=== PATIENT | male | born 2000 | race Two or more races ===

== ENCOUNTER 2024-10-05 14:36 | Emergency (ER) | payer OTHER, SELFPAY ==
[2024-10-05 14:54] VITALS: BMI 26.3
--- NOTE | 2024-10-05 14:56 | PD.EDWOUND ---
ED Wound/Laceration-RME/HPI General Chief Complaint: Extremity Injury, Lower Stated Complaint: CHAINSAW CUT LEFT FOOT Time Seen by Provider: 10/05/24 14:49 Arrival date/time: 10/05/24 14:36 RME / HPI RME / HPI narrative: DR. WILSON MAIN ED EVALUATION: 24 year old male with no past medical history presents to the Emergency Department with complaint of left foot laceration after cutting himself with a chainsaw prior to arrival. Patient was cutting with a chainsaw, it broke and cut his left foot. Patient applying pressure to control bleeding. Patient was wearing sandals with socks and it cut through the sock. Related Data Allergies Allergy/AdvReac Type Severity Reaction Status Date / Time No Known Allergies Allergy Verified 10/05/24 14:43 Review of Systems Review of Systems Systems Reviewed: All systems reviewed, normal except as documented Narrative Review of Systems: GEN: No fever, no chills, no weight loss EYES: No discharge, no visual changes, no pain HEENT: No ear pain, no congestion, no sore throat PULM: No shortness of breath, no cough, no congestion CV: No chest pain, no dyspnea on exertion, no palpitations GI: No nausea, no vomiting, no diarrhea, no pain, no constipation : No frequency, no urgency and no dysuria MUSC/SKEL: No joint pain, no back pain SKIN: No rash; + left foot laceration (see HPI) PSYCH: No hallucinations, no depression HEME/LYMPH: No easy bleeding or bruising tendencies NEURO: No weakness, no headache Past Medical History Past Medical History CARDIAC: Negative Congestive Heart Failure RESPIRATORY: Negative Chronic Obstructive Pulmonary Disease (COPD) GENITOURINARY: Negative Renal Disease ENDOCRINE: Negative Diabetes Mellitus Type 1 or Diabetes Mellitus Type 2 Social History SMOKING STATUS: Never smoker SUBSTANCE USE: does not use ALCOHOL: Never ED Exam Narrative Physical exam: GENERAL APPEARANCE: AxOx4, generally well-appearing. HEENT: NC, AT. MMM. EOMI, clear conjunctiva, oropharynx clear. NECK: Supple without lymphadenopathy. No stiffness or restricted ROM. HEART: Normal rate and regular rhythm, normal S1/S1, no m/r/g LUNGS: CTAB, moving air well. No crackles or wheezes are heard. ABDOMEN: Soft, nontender, nondistended with good bowel sounds heard. BACK: No midline C/T/L spine pain or deformity, No CVAT, no obvious deformity. EXTREMITIES: There is a 4 cm irregular laceration to the dorsal aspect of the left foot over the first metatarsal; no visible tendon or bone. Good extension and flexion. Normal refill cap. Without cyanosis, clubbing or edema. MUSCULOSKELETAL: FROM of all major joints, no chest tenderness NEUROLOGICAL: Grossly nonfocal. Alert and oriented, moving all 4 extremities. CN not formally tested but appear grossly intact. Observed to ambulate with normal gait. Skin: There is a 4 cm irregular laceration to the dorsal aspect of the left foot over the first metatarsal (see above under extremities). Warm and dry without any rash. Course Quality Measures none Orders Category Date Time Status Lidocaine 1% Pf 5 ml [Xylocaine 1% Pf 5 ml] Med 10/05/24 14:57 Discontinued 5 ml EPID X1 ONE Tetanus, Diphtheria Toxoids/Pf [Tenivac-Adult] Med 10/05/24 14:57 Discontinued 0.5 ml IMI .ONCE ONE Vital Signs Vital signs: Vital Signs Temperature 97.9 F 10/05/24 14:58 Pulse Rate 77 10/05/24 14:58 Respiratory Rate 16 10/05/24 14:58 Blood Pressure 141/78 H 10/05/24 14:58 Pulse Oximetry (%) 99 10/05/24 14:58 Oxygen Delivery Method Room Air 10/05/24 14:58 Procedures -ED Laceration Laceration 1: Site: lower extremity (dorsal aspect of left foot over the first metatarsal; another connecting laceration to medial aspect of this laceration) Side (If applicable): left Size (cm): 6 Description: irregular Depth: simple, single layer (no visible tendon or bone) Local Anesthetic: lidocaine 1% Amount of anesthesia used (mL): 2 Pre-repair: wound explored and irrigated extensively (with 250 cc of sterile water) Skin layer closed with: other (3-0 ETHILON) Size (cm): 3-0 Number of sutures: 7 Technique: simple, interrupted Wound / Laceration MDM Narrative MDM Narrative:: Yissel Newell am scribing for and in the presence of Dr. Wilson. Patient data External records reviewed:: [facility] previous records (Reviewed last ED visit dated 06/02/18 , discharged with the following: Closed head injury.) Clinical information provided by:: patient and parent (mother) Social determinants that could affect healthcare access:: none Patient has the following chronic illnesses:: Denies any PMHx, surgeries, daily medications, or known allergies. How is presenting disease/condition affected by chronic disease/condition?: no chronic disease Evaluation data The following diagnostics were reviewed and interpreted by me:: other (specify) (none) Lab and/or radiology exams considered but not ordered:: none Interpretation Summary: n/a Medications / Prescriptions Medications or Prescriptions considered but not ordered:: none Medication administrations:: Medication Administration History Discontinued Medications Lidocaine HCl (Lidocaine Inj Pf 1% 5 Ml Vial) 5 ml EPID X1 ONE Stop: 10/05/24 14:58 Tetanus/Diphtheria Toxoids (Tetanus,Diphtheria Toxoids/Pf (Adult) 0.5 Ml Syringe) 0.5 ml IMi .ONCE ONE Stop: 10/05/24 14:58 see above Consultations Consultation(s) initiated? (list below): No Diagnosis Wound Differential Diagnosis: laceration, abrasion and avulsion of skin Most likely diagnosis given after review of the tests above:: Laceration Admission Indicated Admission indicated?: not indicated Admission Request Was there a request for admission?: No Disposition Plan Disposition Plan: Discharge Discharge Attestation Discharge Attestation: The patient and all family members were given an opportunity to ask questions and understood the discharge instructions. Discharge instructions specifically effects, indications for sooner follow up or return to the emergency department, and the expected course of current diagnosis. Patient condition: Stable Discharge Plan Plan Patient Disposition: HOME (Self Care) Prescriptions/Referrals Referrals: Mla Godwin MD [Primary Care Provider] - In 1 week Problem List Clinical Impression: Laceration Patient/Caregiver Discharge Instructions Education Materials: ED Laceration: All Closures Additional Instructions: Follow-up with your primary care doctor in 7 to 10 days for suture removal. You can return to the emergency department sooner if symptoms worsen or if you notice any new or concerning issues. 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 Print Language: Slovak Stand Alone Forms: Vikki Award Info., Work/School Release, Patient Portal Info Letter
[2024-10-05 14:58] VITALS: BP 141/78; PULSE 77; RESP 16; TEMP 36.6; O2SAT 99
[2024-10-05] MEDS: TETANUS,DIPHTHERIA TOXOIDS/PF (ADULT) 0.5 ML SYRINGE IMi (15:36)
[2024-10-05] MEDS: LIDOCAINE INJ PF 1% 5 ML VIAL EPID (15:44)
[2024-10-05 15:53] VITALS: BP 110/67; PULSE 87; RESP 16; TEMP 36.7; O2SAT 99
== END 2024-10-05 15:53 | disposition home or self-care (01) ==
PROVIDERS: Emergency Provider Emergency Medicine; PCP Pediatrics
DX: S91.312A Laceration without foreign body, left foot, initial encounter (principal); W29.3XXA Contact with powered garden and outdoor hand tools and machinery, initial encounter; Z23 Encounter for immunization
CPT/HCPCS: 12002; 90471; 90714; 99283; J3490

== ENCOUNTER 2024-10-05 21:56 | Emergency (ER) | payer OTHER, SELFPAY ==
[2024-10-05 21:56] VITALS: BMI 26.3
[2024-10-05 22:21] VITALS: BP 160/71; PULSE 84; RESP 18; TEMP 36.9; O2SAT 97
--- NOTE | 2024-10-06 00:36 | PD.EDWOUND ---
ED Wound/Laceration-RME/HPI General Chief Complaint: Wound/Laceration Stated Complaint: LACERATION TO LEFT FOOT OPENED Time Seen by Provider: 10/05/24 22:01 Arrival date/time: 10/05/24 21:56 24-year-old male had sutures placed on the left foot this afternoon return for bleeding from the wound. Patient states that he has been walking with a walker in his foot and he is noticing that wound has been opening with walking and causing the bleeding. He denies purulent discharge swelling or fever or redness Limitations: no limitations Related Data Allergies Allergy/AdvReac Type Severity Reaction Status Date / Time No Known Allergies Allergy Verified 10/05/24 14:43 Review of Systems Constitutional Constitutional: Denies chills and Denies fever(s) Musculoskeletal Musculoskeletal: Denies deformity, Denies joint swelling, Denies numbness and Denies tingling Integumentary/Breasts Skin/Breast: Denies unusual bruising and Reports wounds Neurologic Neurologic: Denies numbness and Denies tingling Past Medical History Past Medical History CARDIAC: Negative Congestive Heart Failure RESPIRATORY: Negative Chronic Obstructive Pulmonary Disease (COPD) GENITOURINARY: Negative Renal Disease ENDOCRINE: Negative Diabetes Mellitus Type 1 or Diabetes Mellitus Type 2 Social History SMOKING STATUS: Never smoker SUBSTANCE USE: does not use ED Exam General Limitations: Present no limitations General appearance: Present alert and in no apparent distress Neurological Exam Neurological exam: Present alert, oriented X3 and CN II-XII intact Psychiatric Psychiatric exam: Present normal affect and normal mood Skin Skin exam: Present warm, dry, intact and normal color Course Course Course Narrative: 21-year-old male reports with complaints of bleeding from surgical site. Patient is advised that walking is causing the opening of the wound so he should not walk with the foot flat if he does not want to walk with a crutch he should walk with on the counter of the ball of his heel with his walker keep the area clean and dry follow-up as directed. Patient verbalized understanding Quality Measures none Vital Signs Vital signs: Vital Signs Temperature 98.4 F 10/05/24 22:21 Pulse Rate 84 10/05/24 22:21 Respiratory Rate 18 10/05/24 22:21 Blood Pressure 160/71 H 10/05/24 22:21 Pulse Oximetry (%) 97 10/05/24 22:21 Oxygen Delivery Method Room Air 10/05/24 22:21 Wound / Laceration Patient data External records reviewed:: None Clinical information provided by:: patient Social determinants that could affect healthcare access:: none Patient has the following chronic illnesses:: none How is presenting disease/condition affected by chronic disease/condition?: no chronic disease Evaluation data The following diagnostics were reviewed and interpreted by me:: other (specify) (none) Lab and/or radiology exams considered but not ordered:: n/a Interpretation Summary: n/a Medications / Prescriptions Medications or Prescriptions considered but not ordered:: none Medication administrations:: none Consultations Consultation(s) initiated? (list below): No Diagnosis Wound Differential Diagnosis: laceration Most likely diagnosis given after review of the tests above:: laceration Admission Indicated Admission indicated?: not indicated Admission Request Was there a request for admission?: No Disposition Plan Disposition Plan: Discharge Discharge Attestation Discharge Attestation: The patient and all family members were given an opportunity to ask questions and understood the discharge instructions. Discharge instructions specifically effects, indications for sooner follow up or return to the emergency department, and the expected course of current diagnosis. Patient condition: Stable Discharge Plan Plan Patient Disposition: HOME (Self Care) Prescriptions/Referrals Referrals: Mal Godwin MD [Primary Care Provider] - In 1 week Problem List Clinical Impression: Laceration Patient/Caregiver Discharge Instructions Discharge Activity: walk with walker only Additional Instructions: Try not to walk on the foot as it causes the wound to open keep the area clean and dry follow-up as originally directed Print Language: Tamazight Stand Alone Forms: Vikki Award Info., Work/School Release, Patient Portal Info Letter
== END 2024-10-06 00:48 | disposition home or self-care (01) ==
PROVIDERS: Emergency Provider Emergency Medicine; PCP Pediatrics
DX: S91.312D Laceration without foreign body, left foot, subsequent encounter (principal); X58.XXXD Exposure to other specified factors, subsequent encounter
CPT/HCPCS: 99281